=== PATIENT | female | born 1975 | race Two or more races ===

== ENCOUNTER 2018-12-26 09:51 | Outpatient (CLI) | payer OTHER ==
[~2018-12-26 09:51] MED LIST: KETO10TA2 PO; ORPH100T PO; PANADOL MAXIMU500 MG PO; SINGULAIR4 MG; XYZAL5 MG PO; ZANTAC150 M3 PO; ZYRTEC10 MG PO
== END 2018-12-26 09:59 | disposition home or self-care (01) ==
LOC: RAD 501 09:51
DX: M25.561 Pain in right knee (principal); M25.562 Pain in left knee

== ENCOUNTER → 2019-01-04 11:03 | Outpatient (CLI) | payer OTHER | END | disposition home or self-care (01) | LOC: LAB 11:03 | DX: M85.88 Other specified disorders of bone density and structure, other site (principal); E55.9 Vitamin D deficiency, unspecified ==